=== PATIENT | male | born 1980 ===

== ENCOUNTER 2017-01-25 23:17 | Emergency (ER) | payer SELFPAY ==
[~2017-01-25] VITALS: Ht 172.7 cm; Wt 60.0 kg
[2017-01-26 00:16] VITALS: Ht 172.7 cm; Wt 60.0 kg
== END 2017-01-26 01:30 | disposition left against medical advice (07) ==
LOC: FTE 23:17
DX: Z53.21 Procedure and treatment not carried out due to patient leaving prior to being seen by health care provider (principal)

== ENCOUNTER 2017-11-27 20:32 | Emergency (ER) | END 2017-11-27 22:21 | disposition left against medical advice (07) ==